=== PATIENT | male | born 1960 | race American Indian/Alaskan Native ===

== ENCOUNTER 2016-11-30 14:20 | Emergency (ER) | payer OTHER ==
[2016-11-30 17:06] LABS: Bilirubin,Urine NEG (Negative); Blood,Urine NEG (Negative); Ketones,Urine 20 mg/dL (Negative); Leukocyte Esterase,Urine NEG (Negative); Mucus,Urine FEW /HPF; Nitrite,Urine NEG (Negative); Protein,Urine <15 mg/dL mg/dL (Negative); Urobilinogen,Urine < 2.0 mg/dL (<2.0)
[2016-11-30 17:32] LABS: Basophils % (Auto) 0.6 % (0.0-1.8); Eosinophils % (Auto) 2.4 % (0.0-4.3); Hematocrit 46.3 % (35.5-45.6); Hemoglobin 15.9 gm/dl (11.8-15.2); Mean Corpuscular HGB Conc 34 % (32-34); Mean Corpuscular Hemoglobin 29 pg (28-32); Mean Corpuscular Volume 85 fl (84-94); Platelet Count 200 K/mm3 (140-440); Red Blood Count 5.43 M/mm3 (3.65-5.03); Red Cell Distribution Width 12.7 % (13.2-15.2); White Blood Count 7.8 K/mm3 (4.5-11.0)
[2016-11-30 17:56] LABS: Anion Gap 23 mmol/L; BUN/Creatinine Ratio 12.22; Blood Urea Nitrogen 11 mg/dL (9-20); Calcium 9.3 mg/dL (8.4-10.2); Carbon Dioxide 25 mmol/L (22-30); Chloride 95.5 mmol/L (98-107); Glucose 296 mg/dL (75-100); Sodium 139 mmol/L (137-145)
[2016-11-30] MEDS ORDERED: NACL 0.9% 1000 ML 1,000 ML ONE (22:18)
[2016-11-30] MEDS ORDERED: NACL 0.9% 1000 ML 1,000 ML IV ONE (22:19)
[2016-11-30] MEDS ORDERED: TORADOL IV ONE (22:23)
--- NOTE | 2016-11-30 22:41 | Emergency Department Report ---
ED Abdominal Pain HPI - General Chief Complaint: Abdominal Pain Stated Complaint: LOWER BACK PAIN/HIGH BLOOD SUGAR Time Seen by Provider: 11/30/16 21:49 Source: patient Mode of arrival: Ambulatory Limitations: No Limitations - History of Present Illness Initial Comments: 56 year old male with a past medical history of type 2 diabetes presents to the hospital complains of left flank pain 3 days. It is constant, unable to characterize, no aggravating or alleviating factors. Pain is rated 7/10 in intensity. Denies associated symptoms including nausea, vomiting, diarrhea, hematuria, or dysuria. Patient has been out of his glipizide for 2 months but compliant with his metformin and presents with elevated glucose. Denies increased thirst or polyuria. He states he has been homeless for the last several months and does not have a PMD. Severity scale (0 -10): 3 - Related Data Previous Rx's Medication Instructions Recorded Last Taken Type Ibuprofen [Motrin] 800 mg PO Q8HR PRN #30 tablet 11/30/16 Unknown Rx Metformin HCl [Glucophage] 1,000 mg PO BID #60 tablet 11/30/16 Unknown Rx glipiZIDE [Glucotrol] 10 mg PO BID #60 tablet 11/30/16 Unknown Rx traMADol [Ultram 50 MG tab] 50 mg PO Q6HR PRN #20 tablet 11/30/16 Unknown Rx Allergies Allergy/AdvReac Type Severity Reaction Status Date / Time No Known Allergies Allergy Verified 11/30/16 22:21 ED Review of Systems ROS: Stated complaint: LOWER BACK PAIN/HIGH BLOOD SUGAR Other details as noted in HPI Comment: All other systems reviewed and negative Other: Constitutional: No fevers chills Eyes: No eye pain visual changes ENT: No ear pain or throat pain Neck: Denies pain Respiratory: Denies cough wheezing shortness of breath Cardiovascular: Denies chest pain, palpitations, syncope GI: As per HPI : Denies dysuria, urinary frequency, or urgency Musculoskeletal: Denies back pain Skin: Denies rash, lesions, erythema Neurologic: Denies headache, numbness, weakness Psychiatric: Denies suicidal ideation, hallucinations ED Past Medical Hx - Past Medical History Previous Medical History?: Yes Hx Diabetes: Yes (Type 2) - Surgical History Past Surgical History?: No - Social History Smoking Status: Never Smoker Substance Use Type: None - Medications Home Medications: Home Medications Medication Instructions Recorded Confirmed Last Taken Type Ibuprofen [Motrin] 800 mg PO Q8HR PRN #30 tablet 11/30/16 Unknown Rx Metformin HCl [Glucophage] 1,000 mg PO BID #60 tablet 11/30/16 Unknown Rx glipiZIDE [Glucotrol] 10 mg PO BID #60 tablet 11/30/16 Unknown Rx traMADol [Ultram 50 MG tab] 50 mg PO Q6HR PRN #20 tablet 11/30/16 Unknown Rx ED Physical Exam - General Limitations: No Limitations - Other Other exam information: General: No limitations, patient is alert in no acute distress Head exam: Atraumatic, normocephalic Eyes exam: Normal appearance, pupils equal reactive to light, extraocular movements intact ENT: Moist mucous membrane, normal oropharynx Neck exam: Normal inspection, full range of motion, no meningismus nontender Respiratory exam: Clear to auscultation bilateral, no wheezes, rales, crackles Cardiovascular: Normal rate and rhythm, normal heart sounds Abdomen: Soft, nondistended, and nontender, with normal bowel sounds, no rebound, or guarding Extremity: Full range of motion normal inspection no deformity, no CVA tenderness Back: Normal Inspection, full range of motion, no tenderness Neurologic: Alert, oriented x3, cranial nerves intact, no motor or sensory deficit Psychiatric: normal affect, normal mood Skin: Warm, dry, intact ED Course Vital Signs 11/30/16 11/30/16 11/30/16 16:15 22:30 22:35 Temperature 97.9 F Pulse Rate 106 H 102 H Respiratory 18 18 16 Rate Blood Pressure 136/96 Blood Pressure 131/81 [Left] O2 Sat by Pulse 100 97 Oximetry 11/30/16 12/01/16 23:45 00:18 Temperature Pulse Rate 80 86 Respiratory 16 16 Rate Blood Pressure Blood Pressure 123/76 136/87 [Left] O2 Sat by Pulse 98 98 Oximetry - Reevaluation(s) Reevaluation #1: 11/30/16 22:40 Treated with normal saline, Toradol, and regular insulin ED Medical Decision Making - Lab Data Result diagrams: 11/30/16 17:14 11/30/16 17:14 Lab Results 11/30/16 11/30/16 11/30/16 Range/Units 16:14 16:40 17:14 WBC 7.8 (4.5-11.0) K/mm3 RBC 5.43 H (3.65-5.03) M/mm3 Hgb 15.9 H (11.8-15.2) gm/dl Hct 46.3 H (35.5-45.6) % MCV 85 (84-94) fl MCH 29 (28-32) pg MCHC 34 (32-34) % RDW 12.7 L (13.2-15.2) % Plt Count 200 (140-440) K/mm3 Lymph % (Auto) 31.8 (13.4-35.0) % Clinch % (Auto) 7.8 H (0.0-7.3) % Eos % (Auto) 2.4 (0.0-4.3) % Baso % (Auto) 0.6 (0.0-1.8) % Lymph # 2.5 (1.2-5.4) K/mm3 Clinch # 0.6 (0.0-0.8) K/mm3 Eos # 0.2 (0.0-0.4) K/mm3 Baso # 0.0 (0.0-0.1) K/mm3 Seg Neutrophils % 57.4 (40.0-70.0) % Seg Neutrophils # 4.5 (1.8-7.7) K/mm3 VBG pH (7.320-7.420) Sodium (137-145) mmol/L Potassium (3.6-5.0) mmol/L Chloride (98-107) mmol/L Carbon Dioxide (22-30) mmol/L Anion Gap mmol/L BUN (9-20) mg/dL Creatinine (0.8-1.5) mg/dL Estimated GFR ml/min BUN/Creatinine Ratio % Glucose (75-100) mg/dL POC Glucose 307 H (70-105) Calcium (8.4-10.2) mg/dL Urine Color Straw (Yellow) Urine Turbidity Clear (Clear) Urine pH 5.0 (5.0-7.0) Ur Specific [place] 1.020 (1.003-1.030) Urine Protein <15 mg/dl (Negative) mg/dL Urine Glucose (UA) >=500 (Negative) mg/dL Urine Ketones 20 (Negative) mg/dL Urine Blood Neg (Negative) Urine Nitrite Neg (Negative) Urine Bilirubin Neg (Negative) Urine Urobilinogen < 2.0 (<2.0) mg/dL Ur Leukocyte Esterase Neg (Negative) Urine WBC (Auto) 1.0 (0.0-6.0) /HPF Urine RBC (Auto) 2.0 (0.0-6.0) /HPF U Epithel Cells (Auto) < 1.0 (0-13.0) /HPF Urine Mucus Few /HPF Ketones (0.2-2.8) mg/dL 11/30/16 11/30/16 11/30/16 Range/Units 17:14 17:40 22:20 WBC (4.5-11.0) K/mm3 RBC (3.65-5.03) M/mm3 Hgb (11.8-15.2) gm/dl Hct (35.5-45.6) % MCV (84-94) fl MCH (28-32) pg MCHC (32-34) % RDW (13.2-15.2) % Plt Count (140-440) K/mm3 Lymph % (Auto) (13.4-35.0) % Clinch % (Auto) (0.0-7.3) % Eos % (Auto) (0.0-4.3) % Baso % (Auto) (0.0-1.8) % Lymph # (1.2-5.4) K/mm3 Clinch # (0.0-0.8) K/mm3 Eos # (0.0-0.4) K/mm3 Baso # (0.0-0.1) K/mm3 Seg Neutrophils % (40.0-70.0) % Seg Neutrophils # (1.8-7.7) K/mm3 VBG pH 7.309 L (7.320-7.420) Sodium 139 (137-145) mmol/L Potassium 4.0 (3.6-5.0) mmol/L Chloride 95.5 L (98-107) mmol/L Carbon Dioxide 25 (22-30) mmol/L Anion Gap 23 mmol/L BUN 11 (9-20) mg/dL Creatinine 0.9 (0.8-1.5) mg/dL Estimated GFR > 60 ml/min BUN/Creatinine Ratio 12.22 % Glucose 296 H (75-100) mg/dL POC Glucose 311 H (70-105) Calcium 9.3 (8.4-10.2) mg/dL Urine Color (Yellow) Urine Turbidity (Clear) Urine pH (5.0-7.0) Ur Specific [place] (1.003-1.030) Urine Protein (Negative) mg/dL Urine Glucose (UA) (Negative) mg/dL Urine Ketones (Negative) mg/dL Urine Blood (Negative) Urine Nitrite (Negative) Urine Bilirubin (Negative) Urine Urobilinogen (<2.0) mg/dL Ur Leukocyte Esterase (Negative) Urine WBC (Auto) (0.0-6.0) /HPF Urine RBC (Auto) (0.0-6.0) /HPF U Epithel Cells (Auto) (0-13.0) /HPF Urine Mucus /HPF Ketones 18.0 H (0.2-2.8) mg/dL 11/30/16 12/01/16 Range/Units 23:07 00:04 WBC (4.5-11.0) K/mm3 RBC (3.65-5.03) M/mm3 Hgb (11.8-15.2) gm/dl Hct (35.5-45.6) % MCV (84-94) fl MCH (28-32) pg MCHC (32-34) % RDW (13.2-15.2) % Plt Count (140-440) K/mm3 Lymph % (Auto) (13.4-35.0) % Clinch % (Auto) (0.0-7.3) % Eos % (Auto) (0.0-4.3) % Baso % (Auto) (0.0-1.8) % Lymph # (1.2-5.4) K/mm3 Clinch # (0.0-0.8) K/mm3 Eos # (0.0-0.4) K/mm3 Baso # (0.0-0.1) K/mm3 Seg Neutrophils % (40.0-70.0) % Seg Neutrophils # (1.8-7.7) K/mm3 VBG pH (7.320-7.420) Sodium (137-145) mmol/L Potassium (3.6-5.0) mmol/L Chloride (98-107) mmol/L Carbon Dioxide (22-30) mmol/L Anion Gap mmol/L BUN (9-20) mg/dL Creatinine (0.8-1.5) mg/dL Estimated GFR ml/min BUN/Creatinine Ratio % Glucose (75-100) mg/dL POC Glucose 266 H 311 H (70-105) Calcium (8.4-10.2) mg/dL Urine Color (Yellow) Urine Turbidity (Clear) Urine pH (5.0-7.0) Ur Specific [place] (1.003-1.030) Urine Protein (Negative) mg/dL Urine Glucose (UA) (Negative) mg/dL Urine Ketones (Negative) mg/dL Urine Blood (Negative) Urine Nitrite (Negative) Urine Bilirubin (Negative) Urine Urobilinogen (<2.0) mg/dL Ur Leukocyte Esterase (Negative) Urine WBC (Auto) (0.0-6.0) /HPF Urine RBC (Auto) (0.0-6.0) /HPF U Epithel Cells (Auto) (0-13.0) /HPF Urine Mucus /HPF Ketones (0.2-2.8) mg/dL - Radiology Data Radiology results: report reviewed (ct a/p IV contast: naf) - Medical Decision Making Patient has elevated ketones but normal pH, anion gap, and bicarbonate. Patient will be discharged home on a one-month supply of his diabetes medication and meds for pain relief.. Patient was treated with 2 L of normal saline, 2 rounds of regular insulin 6 units, [place], and poor - Differential Diagnosis UTI, renal colic, musculoskeletal pain, DKA, hyperglycemia, noncompliance Critical Care Time: No Critical care attestation.: If time is entered above; I have spent that time in minutes in the direct care of this critically ill patient, excluding procedure time. ED Disposition Clinical Impression: Uncontrolled diabetes mellitus, Noncompliance with medication regimen, Left flank pain Disposition: DISCHARGED TO HOME OR SELFCARE Is pt being admited?: No Does the pt Need Aspirin: No Condition: Stable Instructions: Diabetes Mellitus Type 2 in Adults (ED), Flank Pain (ED) Additional Instructions: Take the medication as prescribed. Follow with the clinic provided. Return if symptoms worsen. Prescriptions: glipiZIDE [Glucotrol] 10 mg PO BID #60 tablet Ibuprofen [Motrin] 800 mg PO Q8HR PRN #30 tablet PRN Reason: Pain Metformin HCl [Glucophage] 1,000 mg PO BID #60 tablet traMADol [Ultram 50 MG tab] 50 mg PO Q6HR PRN #20 tablet PRN Reason: Pain Referrals: [facility] [Provider Group] - 3-5 Days Time of Disposition: 01:36
--- NOTE | 2016-11-30 23:29 | Cat Scan Report ---
FINAL REPORT EXAM: CT ABDOMEN PELVIS WO CON HISTORY: left flank pain TECHNIQUE: Helical CT scan through the abdomen and pelvis without contrast. Images are reconstructed in the sagittal and coronal planes. PRIORS: None. FINDINGS: Solid organ and bowel evaluation is limited without intravenous contrast. Bowel evaluation is limited without oral contrast. There is mild right middle lobe and bibasilar subsegmental atelectasis. There is subpleural cyst formation in the extreme right lung base. The liver, gallbladder, pancreas, spleen and adrenal glands appear normal. The kidneys appear grossly normal. The pelvic organs appear grossly normal. The stomach appears grossly within normal limits. There are no abnormally dilated loops of bowel or acute inflammatory changes. A normal-appearing appendix is identified. The abdominal aorta has a normal diameter. There is advanced degenerative disc disease at L2-3 and L5-S1. The lower thoracic and lumbar vertebrae are normal in height and alignment. IMPRESSION: No acute findings in the abdomen/pelvis
[2016-12-01] MEDS ORDERED: NACL 0.9% 1000 ML 1,000 ML IV ONE (00:04)
[2016-12-01] MEDS ORDERED: NORCO 5/325 PO ONE (00:12)
[2016-12-01 00:20] VITALS: BP 136/87
== END 2016-12-01 01:40 | disposition home or self-care (01) ==
LOC: ED 14:20
DX: E11.9 Type 2 diabetes mellitus without complications (principal); Z91.14 Patient's other noncompliance with medication regimen; R10.9 Unspecified abdominal pain
CPT/HCPCS: 36415; 74176; 80048; 81001; 82010; 82805; 82962; 85025; 96361; 96374; 96375; 96376; 99285; J1885; J7030; J1815